=== PATIENT | female | born 1985 | race Caucasian/White ===

== ENCOUNTER 2017-07-24 15:59 | Outpatient (CLI) | payer MEDICAID ==
--- NOTE | 2017-07-24 17:14 | RADRPT ---
PROCEDURE: US OB. CLINICAL INDICATION: Decreased movement TECHNIQUE: Multiple sonographic images of the pelvis were obtained. The images were reviewed on a PACS workstation. COMPARISON: No prior studies are available for comparison. FINDINGS: There is a single live intrauterine . cardiac activity is identified at a rate of 14 2 beats per minute. presentation is cephalic. Placenta is fundal grade 1 to II. Biophysical profile score is as follows: Breathing 2 Movements 2 Tone 2 Fluid volume 2 Amniotic fluid index = 9.42 cm Total biophysical profile score = 8/ IMPRESSION: Biophysical profile score = 88 RPTAT: HH .Ciaran Mccormick MD, MD Date Time Electronically viewed and signed by .Ciaran Mccormick MD, on 07/24/2017 17:13 .W/
--- NOTE | 2017-07-24 18:08 | TRIAGE ---
OB Triage Datetime Report Generated by CPN: 07/24/2017 18:08 Datetime: 07/24/2017 17:52 Stage of : OB Triage Datetime: 07/24/2017 17:43 Labor Evaluation Frequency: 5-7 Monitor Mode: External Duration (sec)2399: 50-70 Quality: Mild Pattern: Normal: <= 5 Contractions in 10 Minutes Resting Tone [place]: Relaxed Heart Rate FHR Baseline Rate: 135 Monitor Mode: External US Variability: Moderate 6-25 bpm Accelerations: 10X10 Decelerations: None Category: Category I Pain Assessment Pain Scale: 2 Pain Presence: Intermittent Pain Type: Cramping Pain Location: Abdomen; Perineum Pain Goal: 3 Pain Relief Measures: Comfort Measures Datetime: 07/24/2017 17:17 Vaginal Exam Dilatation (cms): 0.0 Exam By: SLAYNE Datetime: 07/24/2017 16:47 Labor Evaluation Frequency: 2-7 Monitor Mode: External Duration (sec)2399: 50-70 Quality: Mild Pattern: Normal: <= 5 Contractions in 10 Minutes Resting Tone [place]: Relaxed Heart Rate FHR Baseline Rate: 150 Monitor Mode: External US FHR Baseline Changes: No Baseline Change Variability: Moderate 6-25 bpm Accelerations: 15X15 Decelerations: None Category: Category I Comments: Report to Lynn RN Pain Assessment Pain Scale: 0 Pain Presence: None/Denies Pain Type: N/A Pain Goal: 3 Datetime: 07/24/2017 16:23 Headache: Denies Blurred Vision: No RUQ Epigastric Pain: Denies Facial Edema: None Labor Evaluation Frequency: 2-7 Monitor Mode: External Duration (sec)2399: 40-60 Quality: Mild Pattern: Normal: <= 5 Contractions in 10 Minutes Resting Tone [place]: Relaxed Heart Rate FHR Baseline Rate: 150 Monitor Mode: External US FHR Baseline Changes: No Baseline Change Variability: Moderate 6-25 bpm Accelerations: 15X15 Decelerations: None Category: Category I Pain Assessment Pain Scale: 0 Pain Presence: None/Denies Pain Type: N/A Pain Goal: 3 Membrane Status: Intact Datetime: 07/24/2017 16:20 Stage of : OB Triage Temperature Route: Oral Datetime: 07/24/2017 16:19 Stage of : OB Triage Assessment Type: Triage Maternal Assessment Level of Consciousness: Fully Conscious DTR's/Clonus: DTRs 2+; No Clonus Headache: Denies Blurred Vision: No Respiratory Effort: Unlabored; Regular Rhythm; Equal Expansion Breath Sounds, Left: Clear and Equal Breath Sounds, Right: Clear and Equal Nausea/Vomiting: Denies RUQ Epigastric Pain: Denies Lower Extremities Edema: None Upper Extremities Edema: None Facial Edema: None Temperature Route: Axillary Fall Risk Assessment History of Falling: (0) No Secondary Diagnosis: (0) No Ambulatory Aid: (0) Bedrest/Nurse Assist IV Therapy: (0) No Gait: (0) Normal/Bedrest/Immobile Mental Status: (0) Oriented to Own Ability Fall Score: 0 Fall Risk Score Definition: No Risk: No action required Datetime: 07/24/2017 16:14 Comments: Assume care of pt at this time Datetime: 07/24/2017 15:33 Time of Arrival: 07/24/2017 15:53 EGA: 37.0 Arrived By: Ambulatory Arrived From: Office Chief Complaint: Sent from [facility] for obs and BPP Movement: Present Rupture of Membranes: Denies Vaginal Bleeding: None Vaginal Discharge: Denies Recent Sexual Intercouse: Denies Abdominal Trauma: Not Applicable Patient Complaints: None Additional Patient Complaints: NST and BPP Time Provider Notified: 07/24/2017 17:52 Provider Notified: christofer
--- NOTE | 2017-07-24 19:31 | CONS ---
Date/Time of Note Date/Time of Note DATE: 07/24/17 TIME: 19:25 Consultation Date/Type/Reason Admit Date/Time July 24, 2017 OB triage consult This patient is a 32 years old 1 para 0 with estimated date of confinement of August which makes her about 27 weeks now she has been followed up in [facility] clinic for the diagnosis of a single umbilical artery. Her lab tests so for were fairly normal, with ABO and Rh type of a positive hepatitis B surface antigen ,HIV were negative RPR is nonreactive rubella was positive . on general physical examination she did not have active contractions. Her vital signs were basically within normal limits; with blood pressure over 113/69' pulse rate 70,, respiration 18 'temperature 98.2,. heart rate was 150 beats per minute. contractions as I said was rare every 6-7 minutes . heart tracing is reactive with good variability and occasional acceleration no decelerations. On pelvic examination the cervix was closed, long and thick ,no evidence of rupture of membrane. Constitutional: No chills, No diaphoresis, No disoriented, No febrile, No improved, No no complaints, No other, No poor po, No requiring IVF, No requiring O2 ENT: No bleeding, No congestion, No discharge, No dysphagia, No no complaints, No other, No pain, No sore throat Respiratory: No cough, No no complaints, No other, No pain, No pleuritic pain, No shortness of breath, No sputum, No wheezing Cardiovascular: No chest pain, No edema, No lightheadedness, No no complaints, No orthopenea, No other, No palpitations, No paroxysmal nocturnal dyspnea Gastrointestinal: No blood, No constipation, No decreased appetite, No diarrhea , No flatus, No nausea, No no complaints, No other, No pain, No passing stool, No vomiting Genitourinary: other (As I mentioned her cervix was closed no evidence of a contractions or vaginal bleeding), No bleeding, No discharge, No dysuria, No flank pain, No hematuria, No no complaints Musculoskeletal: No back pain, No bone/joint pain, No neck pain, No no complaints, No other, No restricted range of motion, No swelling Skin: No bruising, No erythema, No laceration, No no complaints, No other, No pruritis, No rash, No skin lesions Neurologic: No confusion, No dizziness, No focal-weakness, No headache, No no complaints, No other, No seizure, No syncope Additional Comments On ultrasound study; the report is a single live intrauterine with cardiac activity 142 bpm presentation was cephalic, placenta was fundal her biophysical profile was reported 03/18. Her amniotic index was 9.42 cm. With these normal finding patient was discharged home to be followed and [facility] clinic ALLY ALEXANDER MD Jul 24, 2017 19:31
== END 2017-07-24 18:03 | disposition home or self-care (01) ==
LOC: OBT 15:59 → L-D 16:03 → OBT 18:03
PROVIDERS: ATTEND Obstetrics & Gynecology
DX: O36.8930 Maternal care for other specified fetal problems, third trimester, not applicable or unspecified (principal); Z3A.27 27 weeks gestation of pregnancy; Z37.9 Outcome of delivery, unspecified
CPT/HCPCS: 76818; Z7500; G0463

== ENCOUNTER 2017-07-27 18:57 | Outpatient (CLI) | payer MEDICAID ==
[~2017-07-27] VITALS: Ht 165.1 cm; Wt 118.0 kg
[2017-07-27 19:01] VITALS: BP 124/72; PULSE 89; RESP 18; Ht 165.1 cm; Wt 118.0 kg
[2017-07-27] MEDS ORDERED: PREN1TAB79 PO (19:03)
--- NOTE | 2017-07-27 20:37 | RADRPT ---
PROCEDURE: OB ultrasound for biophysical profile with SAVITA. CLINICAL INDICATION: Abdominal pain. TECHNIQUE: Multiple sonographic images of the gravid uterus were obtained. COMPARISON: Exam dated 07/24/2017. FINDINGS: breathing movement = 2/2 tone = 2/2 motion = 2/2 SAVITA = 2/2 Single viable intrauterine gestation. Heart rate: 146 bpm. Presentation: Cephalic. Placenta: Anterior/fundal, grade II. No evidence of abruption or placenta previa. SAVITA = 8.17 cm IMPRESSION: 1. Single viable intrauterine gestation. 2. Biophysical profile = 03/18. 3. SAVITA = 8.17 cm. RPTAT: [facility] .Mitch Mo MD, Date Time Electronically viewed and signed by .Mitch Mo MD, MD on 07/27/2017 20:37 .P/
[2017-07-27] MEDS ORDERED: HYDROCODONE/APAP (5/325) TAB PO ONE (21:30)
--- NOTE | 2017-07-27 22:38 | PN ---
Triage Information Date/Time Jul 27, 2017 Reason for visit: Uterine contractions Weeks of Gestation 37w 3d /Para 1/0 Diabetes: none Hypertention: none Additional information C/O vaginal pressure today. Denies leaking or any bleeding. Reports FM. PMHx: none. PSHx: none. NKDA. Objective Vital Signs Date Time Temp Pulse Resp B/P Pulse Ox O2 Delivery O2 Flow Rate FiO2 07/27/17 19:01 98.6 89 18 124/72 99 Room Air Heart Rate: 130's Heart Rate Comments Accels to 150+ BPM. No decels. Contractions: < 5 Minutes Apart Exam Closed/thick/high. Results/Medications Imaging Results BPP 8/8. VTX. SAVITA 8.17. Disposition: Discharge Assessment/Plan A: IUP at 37w 3d. False labor. P: After p.o. hydration, ambulation, and one [place] the pt reports feeling much better and on exam there was no change. Labor precautions reviewed with the pt. CARA SOLIZ MD Jul 27, 2017 22:38
--- NOTE | 2017-07-27 22:55 | TRIAGE ---
OB Triage Datetime Report Generated by CPN: 07/27/2017 22:54 Datetime: 07/27/2017 22:29 Stage of : OB Triage Labor Evaluation Frequency: 2-8 Monitor Mode: External Duration (sec)2399: 40-60 Quality: Mild Pattern: Normal: <= 5 Contractions in 10 Minutes Resting Tone [place]: Relaxed Heart Rate FHR Baseline Rate: 125 Monitor Mode: External US Variability: Moderate 6-25 bpm Accelerations: 15X15 Decelerations: None Category: Category I Datetime: 07/27/2017 22:10 Pain Assessment Pain Scale: 0 Pain Presence: None/Denies Pain Type: N/A Datetime: 07/27/2017 21:47 Monitor Mode: External US Datetime: 07/27/2017 21:38 Stage of : OB Triage Labor Evaluation Frequency: 2-6 Monitor Mode: External Duration (sec)2399: 40-70 Quality: Mild Pattern: Normal: <= 5 Contractions in 10 Minutes Resting Tone [place]: Relaxed Contraction Comments: PT DENIES FEELING UC'S OR CRAMPING. Heart Rate FHR Baseline Rate: 125 Monitor Mode: External US Variability: Moderate 6-25 bpm Accelerations: 15X15 Decelerations: None Category: Category I Datetime: 07/27/2017 21:32 Monitor Mode: External US Datetime: 07/27/2017 21:27 Comments: PT REPORTED INCREASED MOVEMENT. Pain Assessment Pain Scale: 5 Pain Presence: Constant Pain Type: Pressure Pain Location: Perineum Datetime: 07/27/2017 21:19 Monitor Mode: External US Datetime: 07/27/2017 21:06 Vaginal Exam Dilatation (cms): 0.0 Effacement (%): 0 Station: -4 Exam By: C MADHU Datetime: 07/27/2017 21:01 Contraction Comments: APPLIED Comments: APPLIED Pain Assessment Pain Scale: 5 Pain Presence: Constant Pain Type: Pressure Pain Location: Perineum Pain Assessment Comments: PT REPORTED FEELING PAIN WHEN WALKING Datetime: 07/27/2017 19:39 Comments: LOC D/T ONGOING ULTRASOUND Datetime: 07/27/2017 19:33 Monitor Mode: External US Datetime: 07/27/2017 19:32 Stage of : OB Triage Labor Evaluation Frequency: 6-7 Monitor Mode: External Duration (sec)2399: 50-70 Quality: Mild Pattern: Normal: <= 5 Contractions in 10 Minutes Resting Tone [place]: Relaxed Contraction Comments: ABDOMEN SOFT UPON PALPATION Heart Rate FHR Baseline Rate: 125 Monitor Mode: External US Variability: Moderate 6-25 bpm Accelerations: 15X15 Decelerations: None Category: Category I Comments: PT ACKNOWLEDGES MOVEMENT Datetime: 07/27/2017 19:04 Vaginal Exam Dilatation (cms): 0.0 Effacement (%): 0 Station: -3 Exam By: CRUZ DUENAS Vaginal Bleeding: None Cervix, Consistency: Moderate Cervix, Position: Posterior Presentation 'A': Cephalic Datetime: 07/27/2017 19:00 Assessment Type: Triage Maternal Assessment Level of Consciousness: Fully Conscious DTR's/Clonus: DTRs 2+; No Clonus Headache: Denies Blurred Vision: No Respiratory Effort: Unlabored; Regular Rhythm; Equal Expansion Breath Sounds, Left: Clear and Equal Breath Sounds, Right: Clear and Equal Nausea/Vomiting: Denies RUQ Epigastric Pain: Denies Lower Extremities Edema: None Degree: None Upper Extremities Edema: None Degree: None Facial Edema: None Fall Risk Assessment History of Falling: (0) No Secondary Diagnosis: (0) No Ambulatory Aid: (0) Bedrest/Nurse Assist IV Therapy: (0) No Gait: (0) Normal/Bedrest/Immobile Mental Status: (0) Oriented to Own Ability Fall Score: 0 Fall Risk Score Definition: No Risk: No action required Datetime: 07/27/2017 18:51 Time of Arrival: 07/27/2017 18:51 EGA: 37.3 Arrived By: Wheelchair Arrived From: Home Chief Complaint: PT CAME IN C/O PELVIC PRESSURE WHEN SHE WALKS. DENIES HAVING UC'S AND STATES + FE BEATRICE MOVEMENT Movement: Present Contractions: Denies/Absent Rupture of Membranes: Denies Vaginal Bleeding: None Vaginal Discharge: Denies Recent Sexual Intercouse: Denies Abdominal Trauma: Not Applicable Patient Complaints: Other Additional Patient Complaints: NONE Time Provider Notified: 07/27/2017 19:23 Provider Notified: DR. SOLIZ Initial Plan: EF, SVE, CALL OB Datetime: 07/24/2017 16:19 Fall Score: 0 Fall Risk Score Definition: No Risk: No action required Datetime: 07/24/2017 15:33 EGA: 37.0
== END 2017-07-27 22:42 | disposition home or self-care (01) ==
LOC: OBT 18:57 → L-D 18:57 → OBT 22:42
PROVIDERS: ATTEND Obstetrics & Gynecology
DX: O47.1 False labor at or after 37 completed weeks of gestation (principal); Z3A.37 37 weeks gestation of pregnancy
CPT/HCPCS: 76818; Z7610

== ENCOUNTER 2017-08-14 17:40 | Inpatient (IN) | END 2017-08-18 18:40 | disposition home or self-care (01) | DRG 775 ==